=== PATIENT | male | born 1940 | race Caucasian/White ===

== ENCOUNTER → 2017-09-25 | Outpatient (CLI) | payer BC ==
[2017-09-25] MEDS: REGADENOSON 0.4 MG/5 ML DISP.SYRIN. IV (10:51)
== END | disposition home or self-care (01) ==
LOC: NM 08:57
DX: I10 Essential (primary) hypertension (principal)
CPT/HCPCS: 78452; 93017; 96374; 96375; 96376; A9500; J2785

== ENCOUNTER 2017-11-15 09:25 | Inpatient (IN) | payer BC ==
[~2017-11-15 09:25] MED LIST: IODIXANOL 320 MG/ML 100 ML VIAL.; LIDOCAINE 2% 20 ML VIAL.
[2017-11-15 10:05] LABS: ANION GAP 6 (6-14); BLOOD UREA NITROGEN 11 mg/dL (8-26); CALCIUM 9.3 mg/dL (8.5-10.1); CARBON DIOXIDE 29 mmol/L (21-32); CHLORIDE 106 mmol/L (98-107); GFR 72.6; GLUCOSE 107 mg/dL (70-99); POTASSIUM 3.7 mmol/L (3.5-5.1); SODIUM 141 mmol/L (136-145)
[2017-11-15 10:14] LABS: HEMATOCRIT 41.3 % (39.0-53.0); HEMOGLOBIN 14.4 g/dL (13.0-17.5); MEAN CORPUSCULAR HEMOGLOBIN 35 pg (25-35); MEAN CORPUSCULAR HGB CONC 35 g/dL (31-37); MEAN CORPUSCULAR VOLUME 100 fL (79-100); PLATELET COUNT 144 x10^3/uL (140-400); RED BLOOD COUNT 4.14 x10^6/uL (4.30-5.70); RED CELL DISTRIBUTION WIDTH 13.3 % (11.5-14.5); WHITE BLOOD COUNT 7.9 x10^3/uL (4.0-11.0)
[2017-11-15 10:25] LABS: PROTHROMBIN TIME PATIENT 12.8 SEC (11.7-14.0)
[2017-11-15] MEDS ORDERED: IODIXANOL 320 MG/ML 100 ML VIAL. (11:53)
[2017-11-15] MEDS: IODIXANOL 320 MG/ML 100 ML VIAL. IART (12:14)
[2017-11-15] MEDS: fentaNYL PF VIAL 100 MCG/2 ML VIAL IV (12:15)
[2017-11-15] MEDS: MIDAZOLAM HCL/PF 5 MG/5 ML VIAL. IV (12:15)
[2017-11-15] MEDS: LIDOCAINE 2% 20 ML VIAL. IJ (12:15)
[2017-11-15] MEDS ORDERED: ONDANSETRON PF 4 MG/2 ML VIAL. IV (17:30)
[2017-11-15] MEDS ORDERED: HYDROcodone/APAP 5/325MG 1 TAB TABLET PO (17:30)
[2017-11-15] MEDS ORDERED: 0.9 % SODIUM CHLORIDE 10 ML DISP.SYRIN. IV (17:30)
[2017-11-15] MEDS ORDERED: NITROGLYCERIN SUBLINGUAL 0.4 MG BOTTLE OF 25. SL (17:30)
[2017-11-15] MEDS ORDERED: ACETAMINOPHEN 325 MG TABLET. PO (17:30)
[2017-11-15] MEDS: ENOXAPARIN 40 MG/0.4 ML SYRINGE. SQ (18:01)
[2017-11-15] MEDS: ATORVASTATIN CALCIUM 40 MG TABLET. PO (21:29)
[2017-11-15] MEDS: METOPROLOL TART IMMED RELEASE 25 MG TABLET. PO (21:33)
[2017-11-16 08:23] LABS: ALBUMIN 3.3 g/dL (3.4-5.0); ALK PHOS 65 U/L (46-116); ALT (SGPT) 17 U/L (16-63); ANION GAP 7 (6-14); AST (SGOT) 23 U/L (15-37); BLOOD UREA NITROGEN 9 mg/dL (8-26); CALCIUM 9.1 mg/dL (8.5-10.1); CARBON DIOXIDE 28 mmol/L (21-32); CHLORIDE 107 mmol/L (98-107); CHOLESTEROL 144 mg/dL (0-200); CREATININE 0.9 mg/dL (0.7-1.3); DIRECT BILIRUBIN 0.2 mg/dL (0.0-0.2); GLUCOSE 99 mg/dL (70-99); HDLC 65 mg/dL (40-60); LDLC 62 mg/dL (0-100); NON-HDL CHOLESTEROL 79 mg/dL (0-129); POTASSIUM 3.8 mmol/L (3.5-5.1); SODIUM 142 mmol/L (136-145); TOTAL BILIRUBIN 1.3 mg/dL (0.2-1.0); TOTAL PROTEIN 6.6 g/dL (6.4-8.2); TRIGLYCERIDES 84 mg/dL (0-150); VLDLC 17 mg/dL (0-40)
[2017-11-16 08:25] LABS: CHOLESTEROL/HDL RATIO 2.2
[2017-11-16 08:29] LABS: PARTIAL THROMBOPLASTIN TIME 30 SEC (24-38)
[2017-11-16] MEDS ORDERED: LISINOPRIL 10 MG TABLET PO (09:00)
[2017-11-16] MEDS: METOPROLOL TART IMMED RELEASE 25 MG TABLET. PO (09:38)
[2017-11-16] MEDS: ASPIRIN ENTERIC COATED 81 MG TABLET.DR. PO (09:38)
[2017-11-16] MEDS ORDERED: CONTRAST GIVEN MC (15:00)
[2017-11-16] MEDS: IOHEXOL 300 MG/ML 100ML VIAL. IV (15:16)
[2017-11-16] MEDS: ENOXAPARIN 40 MG/0.4 ML SYRINGE. SQ (17:30)
== END 2017-11-16 18:19 | disposition home or self-care (01) | DRG 287 ==
LOC: CCL 09:25 → 2 NORTH 16:27
PROC: 4A023N7 Measurement of Cardiac Sampling and Pressure, Left Heart, Percutaneous Approach (ICD-10-PCS; principal; 2017-11-15)
PROC: B2111ZZ Fluoroscopy of Multiple Coronary Arteries using Low Osmolar Contrast (ICD-10-PCS; 2017-11-15)
PROC: B2151ZZ Fluoroscopy of Left Heart using Low Osmolar Contrast (ICD-10-PCS; 2017-11-15)
DX: I25.119 Atherosclerotic heart disease of native coronary artery with unspecified angina pectoris (principal); N13.30 Unspecified hydronephrosis; N40.0 Benign prostatic hyperplasia without lower urinary tract symptoms; N32.0 Bladder-neck obstruction; E78.5 Hyperlipidemia, unspecified; I10 Essential (primary) hypertension; K57.30 Diverticulosis of large intestine without perforation or abscess without bleeding; M35.3 Polymyalgia rheumatica; N28.1 Cyst of kidney, acquired; Z82.49 Family history of ischemic heart disease and other diseases of the circulatory system; Z87.442 Personal history of urinary calculi
CPT/HCPCS: 36415; 71250; 74018; 74177; 80048; 80061; 80076; 85027; 85610; 85730; 93306; 93458; 93567; 93880; 93970; 99152; 99153; C1769; C1771; C1892; G0269; J1644; J1650; J2250; J3010; Q9967

== ENCOUNTER → 2017-12-08 | Outpatient (CLI) | payer BC | END | disposition home or self-care (01) | LOC: RAD 12:03 | DX: J98.11 Atelectasis (principal); J90 Pleural effusion, not elsewhere classified; Z95.1 Presence of aortocoronary bypass graft | CPT/HCPCS: 71046 ==

== ENCOUNTER → 2019-09-13 | Outpatient (CLI) | payer BC ==
[2018-03-23 13:05] VITALS: BP 161/96
[~2019-09-13] MED LIST changes: +AMIO200T4 PO; +ASPI-612 PO; +ASPI325T11 PO; +ASPI81TA50 PO; +CHOL10003 PO; +DILT120C99 PO; +ENAL20TA PO; +FINA5TAB4 PO; -IODIXANOL 320 MG/ML 100 ML VIAL.; +LATA2.5D3 EACHEYE; -LIDOCAINE 2% 20 ML VIAL.; +METO25TA4 PO; +MULT-246 PO; +OXYC1TAB15 PO; +OXYC1TAB7 PO; +SIMV20TA18 PO; +TAMS0.4C97 PO
[2019-09-13 09:30] LABS: BASO % 1 % (0-3); EOS # 0.2 x10^3/uL (0.0-0.7); EOS % 3 % (0-3); HEMATOCRIT 47.2 % (39.0-53.0); HEMOGLOBIN 16.1 g/dL (13.0-17.5); LYMPH # 1.2 x10^3/uL (1.0-4.8); LYMPH % 19 % (24-48); MEAN CORPUSCULAR HEMOGLOBIN 34 pg (25-35); MEAN CORPUSCULAR HGB CONC 34 g/dL (31-37); MEAN CORPUSCULAR VOLUME 101 fL (79-100); MONO # 0.7 x10^3/uL (0.0-1.1); MONO % 10 % (0-9); NEUT # 4.3 x10^3/uL (1.8-7.7); NEUT % 68 % (31-73); PLATELET COUNT 146 x10^3/uL (140-400); RED BLOOD COUNT 4.69 x10^6/uL (4.30-5.70); RED CELL DISTRIBUTION WIDTH 13.7 % (11.5-14.5); WHITE BLOOD COUNT 6.3 x10^3/uL (4.0-11.0)
[2019-09-13 10:02] LABS: ALBUMIN 3.9 g/dL (3.4-5.0); CALCIUM 9.3 mg/dL (8.5-10.1); CREATININE 0.8 mg/dL (0.7-1.3); DIRECT BILIRUBIN 0.3 mg/dL (0.0-0.2); GFR 93.5; POTASSIUM 4.3 mmol/L (3.5-5.1); TOTAL BILIRUBIN 1.5 mg/dL (0.2-1.0); TOTAL PROTEIN 7.5 g/dL (6.4-8.2)
[2019-09-13 10:05] LABS: CHOLESTEROL/HDL RATIO 2.3
== END ==
LOC: LAB 08:56
PROVIDERS: ATTEND Internal Medicine Cardiovascular Disease
DX: I25.10 Atherosclerotic heart disease of native coronary artery without angina pectoris (principal); E78.5 Hyperlipidemia, unspecified
CPT/HCPCS: 36415; 80048; 80061; 80076; 85025